=== PATIENT | male | born 1985 | race Caucasian/White ===

== ENCOUNTER → 2020-12-17 18:55 | Outpatient (BNVA) | payer BC, SELFPAY | PROVIDERS: Visit Provider Nurse Practitioner Family | DX: Z20.828 Contact with and (suspected) exposure to other viral communicable diseases (principal) | CPT/HCPCS: 87635 ==

== ENCOUNTER 2021-07-20 19:10 | Emergency (ER) | payer BC, SELFPAY ==
[2021-07-20 19:38] VITALS: BP 138/84; PULSE 93; RESP 20; TEMP 37.7; O2SAT 95; BMI 42.8
--- NOTE | 2021-07-20 20:12 | W.ED.BACK ---
HPI - Back Pain/Injury General: Chief Complaint: Back Pain/Injury Stated Complaint: mid r back pain Time Seen by Provider: 07/20/21 20:11 History of Present Illness: HPI Narrative: 35-year-old male patient comes in today with some right lateral rib pain for the last 3 days. Patient was seen at urgent care office early this morning and was diagnosed with bronchitis. Patient came in this evening due to coughing and feeling shifting of his ribs and was concerned for fracture or injury. Patient denies falls. Patient appears well. Patient appears in mild pain worse with movement or cough. Review of Systems General: Reports: 10 or more systems reviewed and unremarkable except in HPI and below Musc: Reports: other (Right rib pain) [facility] ED PFSH: Social History (Updated 12/17/20 @ 18:28 by Monika Hooker LPN) Smoking and tobacco status: never smoked Physical Exam Const: COMMON NORMALS: no acute distress and patient oriented x3 GENERAL APPEARANCE: cooperative HENMT: COMMON NORMALS: normocephalic and Normal external nose present HEAD & SCALP: normal to inspection and normocephalic NOSE: Normal external nose present MOUTH: Normal oral and palatal mucosa present Eye: GENERAL EYE: appearance normal, both eyes and all related structures Neck/C-Spine: COMMON NORMALS: full ROM Chest: COMMONS NORMALS: normal inspection of the chest Resp: COMMON NORMALS: normal respiratory effort EFFORT & INSPECTION: Yes able to speak in complete sentences AUSCULTATION: diminished lung sounds Cardio: COMMON NORMALS: regular rate and regular rhythm RATE: regular rate RHYTHM: regular rhythm GI: COMMON NORMALS: non-tender : COMMON NORMALS: Yes no CVA tenderness BLADDER/KIDNEY EXAM: Yes no CVA tenderness Back/Pelvis: COMMON NORMALS: no CVA tenderness and thoracic and lumbar spine normal to inspection Extremity: COMMON NORMALS: normal to inspection Neuro: COMMON NORMALS: patient oriented x3 and moves all extremities Psych: COMMON NORMALS: mental status grossly normal and cooperative Skin: COMMON NORMALS: no rashes or lesions noted GENERAL SKIN EXAM: no rashes or lesions noted Course Vital Signs: Vital signs: Vital Signs Temperature 99.8 F H 07/20/21 20:14 Pulse Rate 97 07/20/21 20:14 Respiratory Rate 20 H 07/20/21 19:38 Blood Pressure 136/90 07/20/21 20:14 Pulse Oximetry 95 07/20/21 20:14 MDM - Back Pain/Injury MDM Narrative: Medical decision making narrative: 35-year-old male patient comes in with some right lateral rib pain. Patient reports pain for about 2 to 3 days. Patient was seen today at urgent care clinic and started on medications for bronchitis. On exam patient has some decreased breath sounds and tenderness in the right lateral rib area. Vital signs were normal. Differential diagnosis includes but not limited to pleurisy, pneumonia, rib fracture, costochondritis. X-rays noted no obvious rib fractures. No signs of significant pneumonia either was noted. Reviewed exam with patient with recommendations for treatment for costochondritis. Patient reported understanding and agreed to plan. Patient looked well and in no distress. Discharge Plan Discharge Patient Disposition: Home Clinical Impression: Rib pain on right side, Costochondral pain Condition: Stable Prescriptions: New ibuprofen 800 mg tablet 800 mg PO TID PRN (Reason: pain) Qty: 20 RF: 0 No Action albuterol sulfate 90 mcg/actuation HFA aerosol inhaler 2 puff inhalation Q6H PRN (Reason: shortness of breath or wheezing) Qty: 8.5 RF: 0 uembzhgyqtobrak-pfyuuxcia-GZ [Bromfed DM] 2-30-10 mg/5 mL syrup 7.5 ml PO Q6H PRN (Reason: cold symptoms) Qty: 160 RF: 0 doxycycline hyclate 100 mg tablet 100 mg PO BID 10 Days Qty: 20 RF: 0 simvastatin 20 mg tablet 20 mg PO DAILY RF: 0 Discharge Orders: Discharge ED (Routine); Ordered 07/20/21 Ordered By: Nathanael Miranda Discharge Diet: Usual diet Discharge Activity: Increase activity as tolerated Patient Instructions: Costochondritis (ED), Opioid Safety Activity Restrictions/Additional Instructions: Use acetaminophen and ibuprofen as needed for pain. Follow instructions on the bottle and do not take more than prescribed or recommended. Drink plenty of water with medications. Follow-up with primary care as needed. Return to the ER for worsening symptoms or new concerns. Coding Level of Care Code ED Wearing Apparel Shaker for Venkat Winslow Exam Comprehensive
[2021-07-20 20:14] VITALS: BP 136/90; PULSE 97; TEMP 37.7; O2SAT 95
--- NOTE | 2021-07-20 20:17 | XRR_ITS ---
PROCEDURE INFORMATION: Exam: XR Right Ribs with PA Chest Exam date and time: 07/20/2021 8:17 PM Age: 35 years old Clinical indication: Other: Right sided chest pain; Additional info: Right rib pain with cough TECHNIQUE: Imaging protocol: XR Right ribs with PA chest. Views: 3 views COMPARISON: No relevant prior studies available. FINDINGS: Lungs: Unremarkable. No consolidation. Pleural spaces: No pleural effusion. No pneumothorax. Heart/Mediastinum: Unremarkable. No cardiomegaly. Bones/joints: No fracture or other acute osseous abnormality. Soft tissues: The soft tissues appear unremarkable. XR/XR ribs RT mn 3V w [id number] IMPRESSION: 1. No acute right rib fracture demonstrated. 2. No acute cardiopulmonary disease demonstrated.
[2021-07-20] MEDS: ketorolac 30 mg/mL INJ IM (20:23)
[2021-07-20] MEDS: dexamethasone 4 mg Tablet 12 MG PO (21:18)
== END 2021-07-20 21:35 | disposition home or self-care (01) ==
PROVIDERS: Emergency Provider Nurse Practitioner Family
DX: R07.81 Pleurodynia (principal); M94.0 Chondrocostal junction syndrome [Tietze]
CPT/HCPCS: 71101; 96372; 99283; J1885; J8540

== ENCOUNTER 2021-10-12 00:50 | Emergency (ER) | payer BC, SELFPAY ==
[2021-10-12 00:59] VITALS: BP 121/68; PULSE 92; RESP 18; TEMP 36.2; O2SAT 96; BMI 42.8
--- NOTE | 2021-10-12 01:07 | W.ED.ALLEREA ---
HPI - Allergic Reaction General: Chief complaint: Allergic Reaction Stated complaint: Allergic Reaction Time Seen by Provider: 10/12/21 01:06 History of Present Illness: HPI narrative: 35-year-old male patient comes in today with itchy spots over his torso and extremities. Patient was concerned he might be having a allergic reaction to some medication he was recently started on. Patient appears well. Patient appears no acute distress. Patient does report staying at a hotel over the holiday. Review of Systems General: Reports: 10 or more systems reviewed and unremarkable except in HPI and below Skin/Breast: Reports: new lesions PFSH ED PFSH: Social History (Updated 12/17/20 @ 18:28 by Monika Hooker LPN) Smoking and tobacco status: never smoked Physical Exam Const: COMMON NORMALS: no acute distress and patient oriented x3 GENERAL APPEARANCE: cooperative HENMT: COMMON NORMALS: normocephalic, TM's normal bilaterally and Normal external nose present HEAD & SCALP: normal to inspection and normocephalic NOSE: Normal external nose present TYMPANIC MEMBRANE: TM's normal bilaterally MOUTH: Normal oral and palatal mucosa present THROAT: posterior oropharynx normal Eye: GENERAL EYE: appearance normal, both eyes and all related structures Neck/C-Spine: COMMON NORMALS: full ROM Lymph: LYMPHATIC: no lymphadenopathy noted Chest: COMMONS NORMALS: normal inspection of the chest Resp: COMMON NORMALS: normal respiratory effort EFFORT & INSPECTION: Yes able to speak in complete sentences Cardio: COMMON NORMALS: regular rate and regular rhythm RATE: regular rate RHYTHM: regular rhythm GI: COMMON NORMALS: non-tender Back/Pelvis: COMMON NORMALS: thoracic and lumbar spine normal to inspection Extremity: COMMON NORMALS: normal to inspection Neuro: COMMON NORMALS: patient oriented x3 and moves all extremities Psych: COMMON NORMALS: mental status grossly normal and cooperative Skin: NARRATIVE SKIN EXAM: Multiple insect bites some in clusters across the torso and extremities. Course Vital Signs: Vital signs: Vital Signs Temperature 97.1 F L 10/12/21 00:59 Pulse Rate 92 10/12/21 00:59 Respiratory Rate 18 10/12/21 00:59 Blood Pressure 121/68 10/12/21 00:59 Pulse Oximetry 96 10/12/21 00:59 MDM - Allergic Reaction MDM Narrative: Medical decision making narrative: 35-year-old male patient comes in today with multiple red lesions. Patient appears well. Patient has maculopapular lesions with clusters of lesions across the torso and extremities. Differential diagnosis includes contact dermatitis, fleabites versus bedbug bites, allergic reaction. Due to the appearance of clustering of the lesions I believe the patient probably has been assaulted by bedbugs. Reviewed this with patient and family member with recommendations for treatment and investigation. They reported understanding and agreed to plan. Discharge Plan Discharge Patient Disposition: Home Clinical Impression: Bedbug bite Qualifiers: Encounter type: initial encounter Qualified Code(s): W57.XXXA - Bitten or stung by nonvenomous insect and other nonvenomous arthropods, initial encounter Condition: Stable Prescriptions: New triamcinolone acetonide 0.1 % cream 1 applic topical BID Qty: 80 RF: 0 No Action iudnksezbhzdodq-bymxixxjb-NA [Bromfed DM] 2-30-10 mg/5 mL syrup 7.5 ml PO Q6H PRN (Reason: cold symptoms) Qty: 160 RF: 0 doxycycline hyclate 100 mg tablet 100 mg PO BID 10 Days Qty: 20 RF: 0 simvastatin 20 mg tablet 20 mg PO DAILY RF: 0 albuterol sulfate 90 mcg/actuation HFA aerosol inhaler See Rx Instructions .ROUTE .COMPLEX Qty: 9 RF: 0 ibuprofen 800 mg tablet 800 mg PO TID PRN (Reason: pain) Qty: 20 RF: 0 Discharge Orders: Discharge ED (Routine); Ordered 10/12/21 Ordered By: Nathanael Miranda Discharge Diet: Usual diet Discharge Activity: Increase activity as tolerated Patient Instructions: Bed Bugs (ED), Opioid Safety Activity Restrictions/Additional Instructions: Home and rest. Use Benadryl to help with itching. Use triamcinolone cream to the wounds to help with redness and itching. Drink plenty of water with Benadryl. If Benadryl makes you too sleepy you can take Claritin in the morning and Zyrtec at night that can help control the itching. Follow-up with primary care as needed. Talk with your local insect electrician telephone for assistance with control of the bedbugs. Coding Level of Care Code ED Cutting Table Operator First for Venkat Winslow
[2021-10-12 01:30] VITALS: BP 122/62; PULSE 72; RESP 18; O2SAT 96
== END 2021-10-12 01:31 | disposition home or self-care (01) ==
PROVIDERS: Emergency Provider Nurse Practitioner Family
DX: S30.861A Insect bite (nonvenomous) of abdominal wall, initial encounter (principal); S80.862A Insect bite (nonvenomous), left lower leg, initial encounter; S80.861A Insect bite (nonvenomous), right lower leg, initial encounter; S40.862A Insect bite (nonvenomous) of left upper arm, initial encounter; S40.861A Insect bite (nonvenomous) of right upper arm, initial encounter; W57.XXXA Bitten or stung by nonvenomous insect and other nonvenomous arthropods, initial encounter
CPT/HCPCS: 99282

== ENCOUNTER 2022-10-17 20:00 | Outpatient (CLI) | payer BC, SELFPAY | END 2022-10-17 20:01 | disposition home or self-care (01) | LOC: SLEEP 10-18 10:14 | PROVIDERS: Visit Provider Nurse Practitioner Family | DX: G47.31 Primary central sleep apnea (principal) | CPT/HCPCS: 95811 ==

== ENCOUNTER 2022-11-23 22:52 | Emergency (ER) | payer MEDICARE, SELFPAY ==
[2022-11-23 22:55] VITALS: BP 139/83; PULSE 94; RESP 20; TEMP 36.9; O2SAT 95; BMI 46.1
--- NOTE | 2022-11-23 23:39 | W.ED.ABDPA2 ---
HPI - Abdominal Pain General: Chief Complaint: Abdominal Pain Stated Complaint: painful swallowing; no intake since Sunday Time Seen by Provider: 11/23/22 23:38 History of Present Illness: 37-year-old male patient comes in today for complaints of epigastric discomfort. Patient reports episodes of nausea and vomiting starting Sunday. Today patient's had some diarrhea. Patient reports poor oral intake and discomfort. Patient does continue to have his gallbladder. Patient appears mildly unwell but not toxic. Patient does take famotidine routinely. And patient also has obstructive sleep apnea which he uses a CPAP for. Associated Symptoms: Reports diarrhea, fever(s) and nausea Review of Systems Const: Reports: fever(s) GI: Reports: abdominal pain (Epigastric), nausea and diarrhea PFSH ED PFSH: Social History Smoking and tobacco status: former smoker Physical Exam Const: COMMON NORMALS: alert HENMT: COMMON NORMALS: normocephalic HEAD & SCALP: normocephalic Resp: COMMON NORMALS: normal respiratory effort Cardio: COMMON NORMALS: regular rate and regular rhythm RATE: regular rate RHYTHM: regular rhythm GI: COMMON NORMALS: Soft to palpation PALPATION: Yes Soft to palpation and Yes Tenderness to palpation present (GI) (Midepigastric) Extremity: COMMON NORMALS: no pedal edema Neuro: SENSORIUM/ORIENTATION: Yes alert Skin: COMMON NORMALS: turgor normal GENERAL SKIN EXAM: turgor normal Course Vital Signs: Vital signs: Vital Signs Temperature 98.5 F 11/23/22 22:55 Pulse Rate 94 11/23/22 22:55 Respiratory Rate 20 H 11/23/22 22:55 Blood Pressure 139/83 11/23/22 22:55 Pulse Oximetry 95 11/23/22 22:55 Oxygen Delivery Me thod 11/23/22 22:55 MDM - Abdominal Pain Medical Decision Making 37-year-old male patient comes in tonight due to midepigastric pain and diarrhea. Patient reports since Sunday he has had episodes of nausea and vomiting followed by diarrhea today. Patient also reports that he has had a fever with the highest being 104. Respirations are even. Patient appears mildly unwell. Vital signs are normal. Differential diagnosis includes not limited to cholecystitis, influenza, gastritis, pancreatitis, dehydration. CBC was unremarkable. CMP noted some mild decrease in sodium at 134 and chloride at 97. Urinalysis showed some ketones but otherwise was no signs of infection. Patient was treated for dehydration with 1 L of IV fluid. Patient was given Zofran and Reglan for his complaints of nausea. Patient reported significant improvement of symptoms except for some diarrhea stools while in the ER. Patient was given 2 tablets of Lomotil for diarrhea. The patient probably has about a viral gastroenteritis. Recommend follow-up with primary care as needed, return to ER for worsening symptoms. Patient reported understanding. Lab Data 11/23/22 23:52 11/23/22 23:52 Labs/Radiology: Radiology Impressions Chest X-Ray 11/23/22 23:45 IMPRESSION: No acute disease. Laboratory Results WBC 9.9 10^3/uL (4.0-10.0) 11/23/22 23:52 RBC 5.44 10^6/uL (4.1-5.3) H 11/23/22 23:52 Hgb 16.2 g/dL (11.7-16.6) 11/23/22 23:52 Hct 47.9 % (42.0-52.0) 11/23/22 23:52 MCV 88.1 fl (80-94) 11/23/22 23:52 MCH 29.8 pg (28.0-34.0) 11/23/22 23:52 MCHC 33.8 g/dL (30.0-36.0) 11/23/22 23:52 RDW 14.4 % (12.1-15.1) 11/23/22 23:52 Plt Count 147 10^3/cmm (130-400) 11/23/22 23:52 MPV 10.7 fL (7.4-10.4) H 11/23/22 23:52 Neut % (Auto) 76.7 % 11/23/22 23:52 Lymph % (Auto) 11.9 % 11/23/22 23:52 Garrett % (Auto) 10.3 % 11/23/22 23:52 Eos % (Auto) 0.2 % 11/23/22 23:52 Baso % (Auto) 0.4 % 11/23/22 23:52 Neut # (Auto) 7.60 10^3/uL (1.8-7.7) 11/23/22 23:52 Lymph # (Auto) 1.2 10^3/uL (0.8-4.8) 11/23/22 23:52 Garrett # (Auto) 1.0 10^3/uL (0.2-0.9) H 11/23/22 23:52 Eos # (Auto) 0.0 10^3/uL (0.0-0.8) 11/23/22 23:52 Baso # (Auto) 0.0 10^3/uL (0.0-0.1) 11/23/22 23:52 Nucleated RBC % (auto) 0 % 11/23/22 23: Nucleated RBCs # 0.0 /100WBC 11/23/22 23:52 Sodium 134 mmol/L (136-145) L 11/23/22 23:52 Potassium 3.5 mmol/L (3.5-5.1) 11/23/22 23:52 Chloride 97 mmol/L (98-107) L 11/23/22 23:52 Carbon Dioxide 23 mmol/L (22-29) 11/23/22 23:52 Anion Gap 17.5 (5-19) 11/23/22 23:52 BUN 11 mg/dL (6-20) 11/23/22 23:52 Creatinine 0.9 mg/dL (0.7-1.2) 11/23/22 23:52 GFR Calculation 95.0 mL/min (90-130) 11/23/22 23:52 Glucose 93 mg/dL (65-115) 11/23/22 23:52 Calculated Osmolality 277 mOsm/kg (285-295) L 11/23/22 23:52 Calcium 8.8 mg/dL (8.5-10.5) 11/23/22 23:52 Total Bilirubin 0.6 mg/dL (0.15-1.2) 11/23/22 23:52 AST 32 U/L (0-40) 11/23/22 23:52 ALT 41 U/L (0-41) 11/23/22 23:52 Alkaline Phosphatase 77 U/L (40-130) 11/23/22 23:52 Total Protein 7.9 g/dL (6.6-8.7) 11/23/22 23:52 Albumin 4.1 g/dL (3.5-5.2) 11/23/22 23:52 Globulin 3.8 g/dL (1.3-4.6) 11/23/22 23:52 Lipase 18 U/L (13-60) 11/23/22 23:52 Urine Color Dark yellow (Yellow) 11/24/22 00:53 Urine Appearance Clear (CLEAR) 11/24/22 00:53 Urine pH 5 (5-7) 11/24/22 00:53 Ur Specific Watrous 1.025 (1.005-1.030) 11/24/22 00:53 Urine Protein 1+ (Negative) H 11/24/22 00:53 Urine Glucose (UA) Norm (Normal) 11/24/22 00:53 Urine Ketones 2+ (Negative) H 11/24/22 00:53 Urine Blood Neg (Negative) 11/24/22 00:53 Urine Nitrate Negative (Negative) 11/24/22 00:53 Urine Bilirubin Neg (Negative) 11/24/22 00:53 Urine Urobilinogen 4 mg/dL (Negative) H 11/24/22 00:53 Ur Leukocyte Esterase Negative (Negative) 11/24/22 00:53 Urine RBC None /hpf (0-2) 11/24/22 00:53 Urine WBC None /hpf (0-5) 11/24/22 00:53 Ur Squamous Epith Cells 0-4 /hpf (0-5) H 11/24/22 00:53 Amorphous Sediment 1+ /hpf 11/24/22 00:53 Urine Bacteria None /hpf (NONE) 11/24/22 00:53 Urine Mucus 2+ /hpf 11/24/22 00:53 Influenza Type A Ag negative (Negative) 11/24/22 00:05 Influenza Type B Ag negative (Negative) 11/24/22 00:05 SARS-CoV-2 Ag (Rapid) negative (Negative) 11/24/22 00:05 Discharge Plan Discharge Patient Disposition: Home Clinical Impression: Gastroenteritis, Dehydration Condition: Stable Prescriptions: New pantoprazole 40 mg tablet,delayed release (DR/EC) 40 mg PO BID 10 Days Qty: 20 0RF ondansetron HCl 4 mg tablet 4 mg PO Q8H PRN (Reason: nausea and vomiting) Qty: 7 0RF No Action simvastatin 20 mg tablet 20 mg PO DAILY omeprazole 40 mg capsule,delayed release(DR/EC) 40 mg PO DAILY ciprofloxacin-dexamethasone [Ciprodex] 0.3-0.1 % drops,suspension 4 drp otic (ear) BID 7 Days Qty: 7.5 0RF ibuprofen 800 mg tablet 800 mg PO TID PRN (Reason: pain) Qty: 20 0RF Discharge Orders: Discharge ED (Routine); Ordered 11/24/22 Ordered By: Nathanael Miranda Referrals: Leigh Velázquez FNP [Primary Care Provider] - Discharge Diet: Clear Liquid Discharge Activity: Increase activity as tolerated Patient Instructions: Gastroenteritis (ED) Activity Restrictions/Additional Instructions: Home and rest. Drink plenty of water and fluids. Stay on a clear liquid diet until your abdominal pain resolves. Increase diet then slowly to a bland diet. Follow-up with primary care in 3 days. Return to ER for worsening symptoms such as blood in vomit or stool, inability to hold fluids down, or new concerns. Coding Level of Care Code ED Veterinarian Laboratory Animal Care for Magnusg Fwd Exam Detailed
--- NOTE | 2022-11-23 23:45 | XRR_ITS ---
PROCEDURE INFORMATION: Exam: XR Chest Exam date and time: 11/23/2022 11:54 PM Age: 37 years old Clinical indication: Cough; Additional info: Cough, fever TECHNIQUE: Imaging protocol: Radiologic exam of the chest. Views: 1 view. COMPARISON: CR (CHEST, ) 07/20/2021 8:22 PM FINDINGS: Lungs: Unremarkable. No consolidation. Pleural spaces: Unremarkable. No pleural effusion. No pneumothorax. Heart/Mediastinum: Stable heart size. Bones/joints: Unremarkable. XR/XR chest 1V portable [id number] IMPRESSION: No acute disease.
[2022-11-23] MEDS: ondansetron 2 mg/ML SDV 2 mL 4 MG IVP (23:56)
[2022-11-23] MEDS: pantoprazole 40 mg SDV IVP (23:56)
[2022-11-23] MEDS: sodium chloride 0.9% 1,000 ML 999 ML IV (23:58)
[2022-11-24 00:03] VITALS: BP 138/87; O2SAT 90
[2022-11-24 00:09] LABS: Basophils % 0.4 %; Eosinophils % 0.2 %; Hematocrit 47.9 % (42.0-52.0); Hemoglobin 16.2 g/dL (11.7-16.6); Lymphocytes # 1.2 10^3/uL (0.8-4.8); Lymphocytes % 11.9 %; Mean Corpuscular HGB Conc 33.8 g/dL (30.0-36.0); Mean Corpuscular Hemoglobin 29.8 pg (28.0-34.0); Mean Corpuscular Volume 88.1 fl (80-94); Mean Platelet Volume 10.7 fL (7.4-10.4); Monocytes % 10.3 %; Neutrophils % 76.7 %; Nucleated Red Blood Cells % 0 %; Platelet Count 147 10^3/cmm (130-400); Red Blood Count 5.44 10^6/uL (4.1-5.3); Red Cell Distribution Width 14.4 % (12.1-15.1); White Blood Count 9.9 10^3/uL (4.0-10.0)
[2022-11-24 00:30] VITALS: BP 138/87; O2SAT 97
[2022-11-24 00:38] LABS: Alanine Aminotransferase 41 U/L (0-41); Albumin Level 4.1 g/dL (3.5-5.2); Alkaline Phosphatase 77 U/L (40-130); Anion Gap 17.5 (5-19); Aspartate Amino Transferase 32 U/L (0-40); Blood Urea Nitrogen 11 mg/dL (6-20); Calcium 8.8 mg/dL (8.5-10.5); Carbon Dioxide 23 mmol/L (22-29); Chloride 97 mmol/L (98-107); Globulin 3.8 g/dL (1.3-4.6); Glucose 93 mg/dL (65-115); Lipase 18 U/L (13-60); Osmolality Calculated 277 mOsm/kg (285-295); Potassium 3.5 mmol/L (3.5-5.1); Sodium 134 mmol/L (136-145); Total Bilirubin 0.6 mg/dL (0.15-1.2); Total Protein 7.9 g/dL (6.6-8.7)
[2022-11-24 00:40] LABS: Influenza A by IFA negative (Negative); Influenza B by IFA negative (Negative)
[2022-11-24 00:41] LABS: SARS Covid-2 Antigen negative (Negative)
[2022-11-24] MEDS: metoclopramide 5 mg/mL SDV 2 mL 10 MG IVP (00:54)
[2022-11-24 01:00] VITALS: BP 170/118; O2SAT 96
[2022-11-24] MEDS: lidocaine 2% viscous 15 ML, aluminum-mag hydrox-simethicon 30 ML, sucralfate oral liq 1 GM PO (01:10)
[2022-11-24 01:30] VITALS: BP 123/84; O2SAT 95
[2022-11-24 01:31] LABS: Blood Urine Neg (Negative); Glucose Urine UA Norm (Normal); Ketones Urine 2+ (Negative); Nitrate Urine Negative (Negative); Protein Urine 1+ (Negative); Specific Gravity, Urine 1.025 (1.005-1.030); Urine Appearance Clear (CLEAR); Urine Color Dark Yellow (Yellow); pH Urine 5 (5-7)
[2022-11-24 01:32] LABS: Add Urine Culture? No; Add Urine Microscopic? YES; Amorphous Sediment Urine 1+ /hpf; Bilirubin Urine Neg (Negative); Leukocyte Esterase Urine Negative (Negative); Mucus Urine 2+ /hpf; Squamous Epithelial Cell Urine 0-4 /hpf (0-5); Urobilinogen Urine 4 mg/dL (Negative)
[2022-11-24 02:02] VITALS: O2SAT 96
[2022-11-24] MEDS: diphenoxylate/atropine Tablet 2 TAB PO (02:04)
[2022-11-24 02:24] VITALS: BP 152/77; PULSE 92; RESP 20
== END 2022-11-24 02:26 | disposition home or self-care (01) ==
PROVIDERS: Emergency Provider Nurse Practitioner Family; PCP Nurse Practitioner Family
DX: K52.9 Noninfective gastroenteritis and colitis, unspecified (principal); E86.0 Dehydration; Z20.822 Contact with and (suspected) exposure to COVID-19; Z87.891 Personal history of nicotine dependence
CPT/HCPCS: 71045; 80053; 81001; 83690; 85025; 87426; 87804; 96361; 96374; 96375; 99284; C9113; J2405; J2765; J7030

== ENCOUNTER 2023-01-14 04:31 | Emergency (ER) | payer MEDICARE, SELFPAY ==
[2023-01-14 04:42] VITALS: BP 149/73; PULSE 72; RESP 18; TEMP 36.7; O2SAT 98; BMI 39.5
--- NOTE | 2023-01-14 05:04 | CTR_ITS ---
PROCEDURE INFORMATION: Exam: CT Head Without Contrast Exam date and time: 01/14/2023 5:10 AM Age: 37 years old Clinical indication: Stroke-like symptoms; Right upper extremity numbness/paresthesia; Additional info: Symptoms of acute stroke. Right arm and facial numbness/tingling. Lkw [id number] TECHNIQUE: Imaging protocol: Computed tomography of the head without contrast. Radiation optimization: All CT scans at this facility use at least one of these dose optimization techniques: automated exposure control; mA and/or kV adjustment per patient size (includes targeted exams where dose is matched to clinical indication); or iterative reconstruction. Other technique: STROKE PROTOCOL was implemented. REPORTING DATA: Count of CT and Cardiac NM exams in prior 12 months: This patient has received 0 known CTs and 0 known cardiac nuclear medicine studies in the 12 months prior to the current study. COMPARISON: No relevant prior studies available. 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 No evidence of intracranial hemorrhage, mass effect, midline shift or extra-axial fluid collections. Midline structures are normal. Christianson-white matter differentiation is normal. Cerebral ventricles: Slightly enlarged ventricular atria which may represent developing hydrocephalus. Paranasal sinuses: Visualized sinuses are unremarkable. No fluid levels. Mastoid air cells: Visualized mastoid air cells are well aerated. Bones/joints: Unremarkable. No acute fracture. Soft tissues: Unremarkable. CT/CT head thrombolytic [id number] IMPRESSION: Possible developing hydrocephalus. No other acute intracranial abnormalities. ASSESSMENT: ASPECTS ([facility] Stroke Program Early CT Score) is 10.
--- NOTE | 2023-01-14 05:23 | W.ED.NEUROSD ---
HPI - Neuro Symptoms/Deficit General: Chief Complaint: Neuro Symptoms/Deficit Stated Complaint: numbness and tingling to the Right side Time Seen by Provider: 01/14/23 04:48 Source: patient and family History of Present Illness: 37-year-old male he says he went to bed around 2 AM. He awoke at 4:00 in the morning with numbness and tingling to my right side . He notes that it spares the forehead, but involves his face and his right upper extremity. Not necessarily his lower extremity. There are no speech, language, vision, or weakness problems. He ambulates without any difficulty. There is no dizziness. He does not have a headache. He has not had the symptoms before. They are somewhat improved since onset Onset (ago): hour(s) Last Observed Normal: 02:00 Timing confirmed by: family member Location: right face, right arm and right leg History of same: No Severity: mild Quality: numb and tingling Relieving factors: none Exacerbating factors: none Context: sudden onset Associated symptoms: Deny chest pain, cough, diaphoresis, fevers/chills, headache(s), nausea, seizures, short of breath, syncope, vertigo, vomiting or weakness Review of Systems Const: Denies: fever(s) or diaphoresis Eyes: Denies: change in vision ENMT: Denies: throat pain Card: Denies: chest pain or syncope Resp: Denies: dyspnea, productive cough or non-productive cough GI: Denies: nausea or vomiting Neuro: Denies: headache(s) or vertigo PFS ED PFSH: Social History Smoking and tobacco status: former smoker NIH stroke score NIHSS: Level Of Consciousness - 1a: 0 Level Of Consciousness Questions - 1b: Both Correct Level Of Consciousness Commands - 1c: Both Correct Best Gaze - 2: Normal Visual Donaldson - 3: No Visual Loss Facial Palsy - 4: Normal Motor Arm Right - 5: No Drift Motor Arm Left - 5: No Drift Motor Leg Right - 6: No Drift Motor Leg Left - 6: No Drift Limb Ataxia - 7: Absent Sensory - 8: Mild To Moderate Loss Best Language - 9: No Aphasia Dysarthia - 10: Normal Extinction And Inattention - 11: 0 Score: Total Score: 1 Physical Exam Const: COMMON NORMALS: no acute distress GENERAL APPEARANCE: cooperative; not ill appearing and not frail appearing HENMT: COMMON NORMALS: normocephalic, atraumatic and Normal external nose present HEAD & SCALP: normocephalic and atraumatic FACE & SINUS: normal facial exam and face symmetric NOSE: Normal external nose present Eye: COMMON NORMALS: Equal, round and reactive pupils present and EOMs intact bilaterally PUPIL: Yes Equal, round and reactive pupils present Neck/C-Spine: GENERAL: Yes trachea midline Chest: CHEST: Yes Symmetrical chest wall rise Resp: COMMON NORMALS: normal respiratory effort, No retractions, No use of accessory muscles and clear to auscultation bilaterally AUSCULTATION: clear to auscultation bilaterally Cardio: COMMON NORMALS: regular rate and regular rhythm RATE: regular rate RHYTHM: regular rhythm GI: COMMON NORMALS: Normal to inspection, nondistended, normoactive bowel sounds present Neuro: YARITZA COMA SCALE: document GCS findings [place] coma scale eye opening: Spontaneous Yaritza coma scale verbal response: Orientated [place] coma scale motor response: Obey commands Yaritza coma scale total score: 15 SENSORY EXAM: Yes extremities (intact) Psych: COMMON NORMALS: speech normal SPEECH: Yes normal speech Skin: COMMON NORMALS: no rashes or lesions noted GENERAL SKIN EXAM: no rashes or lesions noted Course Vital Signs: Vital signs: Vital Signs Temperature 98.1 F 01/14/23 04:42 Pulse Rate 69 01/14/23 06:03 Respiratory Rate 22 H 01/14/23 06:03 Blood Pressure 130/75 01/14/23 06:03 Pulse Oximetry 95 01/14/23 06:03 Oxygen Delivery Me thod 01/14/23 06:03 MDM - Neuro Symptoms/Deficit Medical Decision Making Mild neurological symptoms, improving on their own at this point, presenting within the treatment window but without the severity to be a candidate for tPA. Head CT and labs are pending. Head CT shows possible enlargement of hisVentricles. No evidence of stroke. Paresthesias are resolved except for the right thumb. Laboratory is not remarkable. With improvement in his symptoms, he will be allowed home with strict return precautions. Lab Data 01/14/23 05:55 01/14/23 05:[address] 01/14/23 05:04 IMPRESSION: Possible developing hydrocephalus. No other acute intracranial abnormalities. ASSESSMENT: ASPECTS ([place] Stroke Program Early CT Score) is 10. Laboratory Results WBC 9.4 10^3/uL (4.0-10.0) 01/14/23 05:55 RBC 5.02 10^6/uL (4.1-5.3) 01/14/23 05:55 Hgb 14.9 g/dL (11.7-16.6) 01/14/23 05:55 Hct 45.3 % (42.0-52.0) 01/14/23 05:55 MCV 90.2 fl (80-94) 01/14/23 05:55 MCH 29.7 pg (28.0-34.0) 01/14/23 05:55 MCHC 32.9 g/dL (30.0-36.0) 01/14/23 05:55 RDW 14.0 % (12.1-15.1) 01/14/23 05:55 Plt Count 212 10^3/cmm (130-400) 01/14/23 05:55 MPV 10.4 fL (7.4-10.4) 01/14/23 05:55 Neut % (Auto) 54.3 % 01/14/23 05:55 Lymph % (Auto) 30.4 % 01/14/23 05:55 Williamson % (Auto) 6.1 % 01/14/23 05:55 Eos % (Auto) 7.4 % 01/14/23 05:55 Baso % (Auto) 1.3 % 01/14/23 05:55 Neut # (Auto) 5.11 10^3/uL (1.8-7.7) 01/14/23 05:55 Lymph # (Auto) 2.9 10^3/uL (0.8-4.8) 01/14/23 05:55 Williamson # (Auto) 0.6 10^3/uL (0.2-0.9) 01/14/23 05:55 Eos # (Auto) 0.7 10^3/uL (0.0-0.8) 01/14/23 05:55 Baso # (Auto) 0.1 10^3/uL (0.0-0.1) 01/14/23 05:55 Nucleated RBC % (auto) 0 % 01/14/23 05:55 Nucleated RBCs # 0.0 /100WBC 01/14/23 05:55 Sodium 137 mmol/L (136-145) 01/14/23 05:55 Potassium 3.9 mmol/L (3.5-5.1) 01/14/23 05:55 Chloride 102 mmol/L (98-107) 01/14/23 05:55 Anion Gap 17.9 (5-19) 01/14/23 05:55 BUN 9 mg/dL (6-20) 01/14/23 05:55 Creatinine 0.8 mg/dL (0.7-1.2) 01/14/23 05:55 GFR Calculation 108.8 mL/min (90-130) 01/14/23 05:55 Glucose 106 mg/dL (65-115) 01/14/23 05:55 Calcium 9.0 mg/dL (8.5-10.5) 01/14/23 05:55 Total Bilirubin 0.5 mg/dL (0.15-1.2) 01/14/23 05:55 AST 29 U/L (0-40) 01/14/23 05:55 Alkaline Phosphatase 74 U/L (40-130) 01/14/23 05:55 Total Protein 6.9 g/dL (6.6-8.7) 01/14/23 05:55 Albumin 3.7 g/dL (3.5-5.2) 01/14/23 05:55 Globulin 3.2 g/dL (1.3-4.6) 01/14/23 05:55 Discharge Plan Discharge Patient Disposition: Home Clinical Impression: Paresthesia Condition: Stable Prescriptions: No Action simvastatin 20 mg tablet 20 mg PO DAILY omeprazole 40 mg capsule,delayed release(DR/EC) 40 mg PO DAILY ciprofloxacin-dexamethasone [Ciprodex] 0.3-0.1 % drops,suspension 4 drp otic (ear) BID 7 Days Qty: 7.5 0RF ibuprofen 800 mg tablet 800 mg PO TID PRN (Reason: pain) Qty: 20 0RF ondansetron HCl 4 mg tablet 4 mg PO Q8H PRN (Reason: nausea and vomiting) Qty: 7 0RF Discharge Orders: Discharge ED (Routine); Ordered 01/14/23 Ordered By: Donald Pascual Referrals: Melania,Leigh, PUTTYING AND [employer]KING SUPERVISOR [Primary Care Provider] - Patient Instructions: Paresthesia (ED) Activity Restrictions/Additional Instructions: Return for return of paresthesias, weakness, trouble with language or vision, any other concerning symptoms. Return also for increasing headache or fever. Close outpatient follow-up with your doctor. Coding Level of Care Code ED Physician Specialist for Venkat Winslow
[2023-01-14 06:01] LABS: Basophils # 0.1 10^3/uL (0.0-0.1); Basophils % 1.3 %; Eosinophils # 0.7 10^3/uL (0.0-0.8); Eosinophils % 7.4 %; Hematocrit 45.3 % (42.0-52.0); Hemoglobin 14.9 g/dL (11.7-16.6); Lymphocytes # 2.9 10^3/uL (0.8-4.8); Lymphocytes % 30.4 %; Mean Corpuscular HGB Conc 32.9 g/dL (30.0-36.0); Mean Corpuscular Hemoglobin 29.7 pg (28.0-34.0); Mean Corpuscular Volume 90.2 fl (80-94); Mean Platelet Volume 10.4 fL (7.4-10.4); Monocytes # 0.6 10^3/uL (0.2-0.9); Monocytes % 6.1 %; Neutrophils # 5.11 10^3/uL (1.8-7.7); Neutrophils % 54.3 %; Nucleated Red Blood Cells % 0 %; Platelet Count 212 10^3/cmm (130-400); Red Blood Count 5.02 10^6/uL (4.1-5.3); White Blood Count 9.4 10^3/uL (4.0-10.0)
[2023-01-14 06:03] VITALS: BP 130/75; PULSE 69; RESP 22; O2SAT 95
[2023-01-14] MEDS: sodium chloride 0.9% 500 ML 999 ML IV (06:06)
[2023-01-14 06:21] LABS: Alanine Aminotransferase 46 U/L (0-41); Albumin Level 3.7 g/dL (3.5-5.2); Alkaline Phosphatase 74 U/L (40-130); Anion Gap 17.9 (5-19); Aspartate Amino Transferase 29 U/L (0-40); Blood Urea Nitrogen 9 mg/dL (6-20); Carbon Dioxide 21 mmol/L (22-29); Chloride 102 mmol/L (98-107); Globulin 3.2 g/dL (1.3-4.6); Glomerular Filtration Rate 108.8 mL/min (90-130); Glucose 106 mg/dL (65-115); Osmolality Calculated 283 mOsm/kg (285-295); Potassium 3.9 mmol/L (3.5-5.1); Sodium 137 mmol/L (136-145); Total Bilirubin 0.5 mg/dL (0.15-1.2); Total Protein 6.9 g/dL (6.6-8.7)
--- NOTE | 2023-01-14 06:41 | PC.NURSE ---
Patient component inspector light due to pain with IV site. Upon inspection IV had infiltrated, IV was removed and fluids DC.
[2023-01-14 06:50] VITALS: BP 123/79; PULSE 69; RESP 25; O2SAT 97
[2023-01-14 07:16] LABS: Alcohol Level < 10 mg/dL (0-10)
[2023-01-14 07:30] LABS: INR 0.95 (0.8-1.2); Partial Thromboplastin Time 30.8 SECONDS (23.9-36.7)
== END 2023-01-14 06:51 | disposition home or self-care (01) ==
PROVIDERS: Emergency Provider Emergency Medicine; PCP Nurse Practitioner Family
DX: R20.2 Paresthesia of skin (principal); Z87.891 Personal history of nicotine dependence
CPT/HCPCS: 70450; 80053; 80307; 85025; 85610; 85730; 99284; J7040

== ENCOUNTER 2023-03-10 19:10 | Emergency (ER) | payer MEDICARE, MEDICAID, SELFPAY ==
[2023-03-10 19:21] VITALS: BP 143/68; RESP 18; TEMP 37.1; O2SAT 98
--- NOTE | 2023-03-10 20:02 | USR_ITS ---
PROCEDURE INFORMATION: Exam: US Scrotum Exam date and time: 03/10/2023 8:18 PM Age: 37 years old Clinical indication: Scrotum pain; Additional info: Concern for abscess TECHNIQUE: Imaging protocol: Real-time ultrasound of the scrotum and contents with color Doppler and image documentation. COMPARISON: No relevant prior studies available. FINDINGS: Right testicle: Normal. No mass. No torsion. Normal vascular flow. Left testicle: Normal. No mass. No torsion. Normal vascular flow. Epididymides: Normal. Scrotum/soft tissues: Small left hydrocele and minimal right hydrocele. There is thickening and hyperemia of scrotum suspicious for cellulitis. No discrete fluid collection to suggest abscess. Other findings: Asymmetry of right inguinal canal contents is suggestive of fatty hernia. US/US scrotum [id number] IMPRESSION: Scrotal abnormalities suspicious for cellulitis. No evident abscess.
--- NOTE | 2023-03-10 20:03 | W.ED.SKABFB ---
HPI - Skin/Abscess/Foreign Bdy General: Chief complaint: Skin/Abscess/Foreign Body Stated complaint: insect bite Time Seen by Provider: 03/10/23 19:46 History of Present Illness: Patient comes in with redness, swelling, and pain on the right side of his scrotum. States he has had it for the past couple of days. Denies any fever, cough, congestion, vomiting, diarrhea. Denies dysuria. Associated symptoms: Deny fever(s), nausea or vomiting Review of Systems Const: Denies: fever(s) or body aches Eyes: Denies: change in vision ENMT: Denies: odynophagia Card: Denies: chest pain Resp: Denies: dyspnea or productive cough GI: Denies: abdominal pain, nausea or vomiting : Reports: other (Swelling, tenderness to the right side of scrotum); Denies: flank pain or dysuria PFSH ED PFSH: Social History Smoking and tobacco status: former smoker Physical Exam Const: COMMON NORMALS: no acute distress, patient oriented x3, healthy appearing and alert HENMT: COMMON NORMALS: normocephalic and atraumatic HEAD & SCALP: normocephalic and atraumatic Eye: COMMON NORMALS: Equal, round and reactive pupils present and EOMs intact bilaterally PUPIL: Yes Equal, round and reactive pupils present Neck/C-Spine: COMMON NORMALS: full ROM and supple Resp: COMMON NORMALS: normal respiratory effort, No retractions and No use of accessory muscles Cardio: COMMON NORMALS: regular rate and regular rhythm RATE: regular rate RHYTHM: regular rhythm GI: COMMON NORMALS: Normal to inspection, nondistended, normoactive bowel sounds present, Soft to palpation and non-tender PALPATION: Yes Soft to palpation : OTHER: 4 x 5 cm indurated region on the right side of his scrotum with no central fluctuance. The area is erythematous and tender and warm to palpation. Does not extend onto the perineum Extremity: COMMON NORMALS: normal to inspection and full ROM Neuro: COMMON NORMALS: patient oriented x3 SENSORIUM/ORIENTATION: Yes alert Psych: COMMON NORMALS: mental status grossly normal and cooperative Course Vital Signs: Vital signs: Vital Signs Temperature 98.8 F 03/10/23 19:21 Respiratory Rate 17 03/10/23 20:46 Blood Pressure 143/68 03/10/23 19:21 Pulse Oximetry 98 03/10/23 19:21 Oxygen Delivery Me thod Room Air 03/10/23 19:21 MDM - Skin/Abscess/Foreign Bdy Medicial Decision Making Patient comes in with redness, swelling, and pain on the right side of his scrotum. States he has had it for the past couple of days. Denies any fever, cough, congestion, vomiting, diarrhea. Denies dysuria. On physical exam he has a 4 x 5 cm indurated region on the right side of his scrotum with no central fluctuance. The area is erythematous and tender and warm to palpation. Will check ultrasound, and reassess. On reassessment I talked to the patient about the ultrasound. His ultrasound shows no signs of scrotal abscess. He does have a right inguinal fat-containing hernia. We will start him on antibiotics for the cellulitis, and refer him to surgery for the inguinal hernia. Plan to discharge with precautions to return for worsening or changing symptoms. Lab Data Radiology Impressions Scrotum Ultrasound 03/10/23 20:02 IMPRESSION: Scrotal abnormalities suspicious for cellulitis. No evident abscess. Discharge Plan Discharge Patient Disposition: Home Clinical Impression: Cellulitis of scrotum, Inguinal hernia Condition: Stable Prescriptions: New Bactrim DS 800-160 mg tablet 1 tab PO BID 7 Days Qty: 14 0RF cephalexin 500 mg capsule 500 mg PO Q6H 7 Days Qty: 28 0RF No Action simvastatin 20 mg tablet 20 mg PO DAILY omeprazole 40 mg capsule,delayed release(DR/EC) 40 mg PO DAILY ciprofloxacin-dexamethasone [Ciprodex] 0.3-0.1 % drops,suspension 4 drp otic (ear) BID 7 Days Qty: 7.5 0RF ibuprofen 800 mg tablet 800 mg PO TID PRN (Reason: pain) Qty: 20 0RF ondansetron HCl 4 mg tablet 4 mg PO Q8H PRN (Reason: nausea and vomiting) Qty: 7 0RF Discharge Orders: Discharge ED (Routine); Ordered 03/10/23 Ordered By: Adelso Melendrez Referrals: Leigh Velázquez FNP [Primary Care Provider] - Patient Instructions: Cellulitis Coding Level of Care Code ED Stripper Soft Plastic for Chg Goldy
[2023-03-10] MEDS: sulfamethoxazole-trimeth DS 160-800 mg Tablet 1 TAB PO (20:45)
[2023-03-10] MEDS: cephALEXin 500 mg Capsule PO (20:45)
[2023-03-10 20:46] VITALS: RESP 17
--- NOTE | 2023-03-12 08:47 | DCPLANNER ---
Addendum entered by La Good 04/11/23 11:11: Patient had a follow up appointment scheduled with general surgery - patient did attend appointment Addendum entered by La Good 03/15/23 08:05: Patient has a follow up appointment scheduled for Monday, April 10, 2023 at 1:[address] Cook at general surgery. Original Note: grooming salon manager had message to schedule a follow up appointment for patient with general surgery. grooming salon manager sent patients information to the front office staff at general surgery. Patients information will be printed and reviewed. Clinic will call patient with appointment information.
== END 2023-03-10 20:53 | disposition home or self-care (01) ==
PROVIDERS: Emergency Provider Emergency Medicine; PCP Nurse Practitioner Family
DX: N49.2 Inflammatory disorders of scrotum (principal); K40.90 Unilateral inguinal hernia, without obstruction or gangrene, not specified as recurrent; Z87.891 Personal history of nicotine dependence
CPT/HCPCS: 76870; 99284

== ENCOUNTER → 2023-04-10 13:11 | Outpatient (BNVA) | payer MEDICARE, SELFPAY | PROVIDERS: PCP Nurse Practitioner Family; Visit Provider Surgery | DX: N49.2 Inflammatory disorders of scrotum (principal) | CPT/HCPCS: 99203 ==

== ENCOUNTER 2023-04-29 19:08 | Emergency (ER) | payer MEDICARE, SELFPAY ==
[2023-04-29 19:16] VITALS: BP 118/66; PULSE 73; RESP 18; TEMP 36.8; O2SAT 98; BMI 46.1
--- NOTE | 2023-04-29 19:45 | XRR_ITS ---
PROCEDURE INFORMATION: Exam: XR Lumbosacral Spine Exam date and time: 04/29/2023 7:58 PM Age: 37 years old Clinical indication: Low back pain TECHNIQUE: Imaging protocol: Radiologic exam of the lumbosacral spine. Views: 2 or 3 views. [facility] [id number] 03/10/2023 8:18 PM FINDINGS: Bones/joints: Normal. No acute fracture. Normal alignment. Soft tissues: Unremarkable. XR/XR lumbar spine 2-3V* [id number] IMPRESSION: No acute findings.
[2023-04-29 20:23] VITALS: RESP 16; O2SAT 98
[2023-04-29] MEDS: HYDROmorphone 1 mg/mL INJ 1 mL IM (20:23)
[2023-04-29] MEDS: ketorolac 60 mg/2 mL INJ IM (20:24)
[2023-04-29 20:27] VITALS: BP 137/82; PULSE 70; RESP 16; O2SAT 98
--- NOTE | 2023-04-29 21:19 | W.ED.BACK ---
HPI - Back Pain/Injury General: Chief Complaint: Back Pain/Injury Stated Complaint: back pain Time Seen by Provider: 04/29/23 19:22 Source: patient History of Present Illness: 37-year-old male who this afternoon hurt his back while getting out of a car after a ride of about 40 minutes. He complains of left-sided lumbosacral region pain, particularly when straightening up straight. As long as he leans to the side and bends over, he is in minimal pain. No radicular pain down the legs. No paresthesias. No weakness. No loss of bowel or bladder function. MD elicited complaint: back pain Pertinent past history: other Onset (ago): hour(s) Timing: constant Severity: moderate Similar Symptoms Previously: No Quality: stabbing Location: lumbar spine and sacrum Radiation: none Exacerbating factors: movement and sitting upright Relieving factors: immobilization Associated symptoms: Deny abdominal pain, arthralgias, chills, fecal incontinence, fever(s), nausea, numbness, tingling/numbness/burning, urinary frequency or vomiting Review of Systems Const: Denies: fever(s) or chills Card: Denies: chest pain Resp: Denies: dyspnea GI: Denies: abdominal pain, nausea, vomiting or fecal incontinence Musc: Reports: back pain Neuro: Denies: headache(s) PFSH ED PFSH: Medical History Chronic GERD High triglycerides Surgical History Hx of appendectomy Social History Smoking and tobacco status: former smoker Physical Exam Const: COMMON NORMALS: no acute distress GENERAL APPEARANCE: cooperative; not ill appearing and not frail appearing HENMT: COMMON NORMALS: normocephalic, atraumatic and Normal external nose present HEAD & SCALP: normocephalic and atraumatic FACE & SINUS: normal facial exam and face symmetric NOSE: Normal external nose present Eye: COMMON NORMALS: Equal, round and reactive pupils present and EOMs intact bilaterally PUPIL: Yes Equal, round and reactive pupils present Neck/C-Spine: GENERAL: Yes trachea midline Chest: CHEST: Yes Symmetrical chest wall rise Resp: COMMON NORMALS: normal respiratory effort, No retractions, No use of accessory muscles and clear to auscultation bilaterally AUSCULTATION: clear to auscultation bilaterally Cardio: COMMON NORMALS: regular rate and regular rhythm RATE: regular rate RHYTHM: regular rhythm GI: COMMON NORMALS: Normal to inspection, nondistended, normoactive bowel sounds present Back/Pelvis: OTHER: Minimal reproducible tenderness over the iliolumbar ligament on the left. Some sacroiliac joint tenderness. No midline tenderness. Negative straight leg raise testing bilaterally. No weakness on muscle testing. No sensory changes Extremity: COMMON NORMALS: no pedal edema Neuro: YARITZA COMA SCALE: document GCS findings [place] coma scale eye opening: Spontaneous [place] coma scale verbal response: Orientated Yaritza coma scale motor response: Obey commands [place] coma scale total score: 15 SENSORY EXAM: Yes extremities (intact) Psych: COMMON NORMALS: speech normal SPEECH: Yes normal speech Skin: COMMON NORMALS: no rashes or lesions noted GENERAL SKIN EXAM: no rashes or lesions noted Course Vital Signs: Vital signs: Vital Signs Temperature 98.2 F 04/29/23 19:16 Pulse Rate 70 04/29/23 20:27 Respiratory Rate 16 04/29/23 20:27 Blood Pressure 137/82 04/29/23 20:27 Pulse Oximetry 98 04/29/23 20:27 Oxygen Delivery Me thod Room Air 04/29/23 20:27 MDM - Back Pain/Injury Medical Decision Making X-rays show no fracture or significant disc base narrowing. On exam, consistent with a iliolumbar sprain. Pain control, relative rest no more than 48 hours, etc. Red flag signs given/explained for return. Discharge Plan Discharge Patient Disposition: Home Clinical Impression: Sprain of iliolumbar ligament Condition: Stable Prescriptions: New hydrocodone-acetaminophen 5-325 mg tablet 1 tab PO Q8H PRN (Reason: pain) Qty: 7 0RF Medrol (Jonel) 4 mg tablets,dose pack See Rx Instructions .ROUTE .COMPLEX Qty: 21 0RF Rx Instructions: orally per package directions No Action simvastatin 20 mg tablet 20 mg PO DAILY omeprazole 40 mg capsule,delayed release(DR/EC) 40 mg PO DAILY ciprofloxacin-dexamethasone [Ciprodex] 0.3-0.1 % drops,suspension 4 drp otic (ear) BID 7 Days Qty: 7.5 0RF ibuprofen 800 mg tablet 800 mg PO TID PRN (Reason: pain) Qty: 20 0RF ondansetron HCl 4 mg tablet 4 mg PO Q8H PRN (Reason: nausea and vomiting) Qty: 7 0RF Discharge Orders: Discharge ED (Routine); Ordered 04/29/23 Ordered By: Donald Pascual Referrals: Leigh Velázquez FNP [Primary Care Provider] - 1-3 days Patient Instructions: Lower Back Exercises (ED), Opioid Safety, Pain Management Activity Restrictions/Additional Instructions: Return for weakness to the lower extremities, numbness or tingling to the lower extremities, worsening pain despite treatment, etc. Relative rest for the next 48 hours, with gentle stretches to follow. Follow-up with your doctor this week. Coding Level of Care Code ED Weekend Anchor for Venkat Winslow
== END 2023-04-29 20:49 | disposition home or self-care (01) ==
PROVIDERS: Emergency Provider Emergency Medicine; PCP Nurse Practitioner Family
DX: S33.5XXA Sprain of ligaments of lumbar spine, initial encounter (principal); Z87.891 Personal history of nicotine dependence; X50.9XXA Other and unspecified overexertion or strenuous movements or postures, initial encounter
CPT/HCPCS: 72100; 96372; 99284; J1170; J1885

== ENCOUNTER 2023-05-17 13:43 | Outpatient (CLI) | payer MEDICARE, BC, SELFPAY ==
--- NOTE | 2023-05-17 14:30 | USCV_ITS ---
Gonzalo Sargent Age: 37 Gender: M : 1985 Exam Date: 05/17/2023 15:35 Ordering Phys: Ester Shepard Technologist: Nany Reid Exam Location: [facility] – [place], [place] Indication: SOB, BP: 136 / 84 HR: 56 Rhythm: Sinus Technical Quality: Technically difficult study MEASUREMENTS (Male / Female) Normal Values 2D ECHO LV Diastolic Diameter PLAX 3.4 cm 4.2 - 5.9 / 3.9 - 5.3 cm LV Systolic Diameter PLAX 2.9 cm IVS Diastolic Thickness 0.6 cm 0.6 - 1.0 / 0.6 - 0.9 cm IVS Systolic Thickness 1.6 cm LVPW Diastolic Thickness 3.2 cm 0.6 - 1.0 / 0.6 - 0.9 cm LVPW Systolic Thickness 1.6 cm LVOT Diameter 2.0 cm LV Ejection Fraction 2D Teich 65.6 % LV Ejection Fraction MOD 2C 77.6 % LV Ejection Fraction 2C AL 77.1 % LA Diameter 3.4 cm LA Width 3.2 cm LA Height 5.3 cm RA Width 4.0 cm RA Height 5.5 cm Aorta at Sinotubular Diameter 2.8 cm M-MODE Aortic Annulus Diameter 3.1 cm LA Ao Ratio MM 1.1 MV E Point Septal Separation 0.6 cm DOPPLER AV Peak Velocity 125.0 cm/s LVOT Peak Velocity 112.0 cm/s AV Area Cont Eq vti 3.1 cm squared AV Area Cont Eq pk 2.9 cm squared MV Peak Velocity 107.0 cm/s MV Area PHT 2.7 cm squared Mitral E to A Ratio 1.1 MV E' Velocity 48.5 cm/s Mitral E to MV E' Ratio 10.7 Mitral E to LV E' Lateral Ratio 8.5 Mitral E to LV E' Septal Ratio 14.6 TR Peak Velocity 159.8 cm/s TR Peak Gradient 10.2 mmHg Right Atrial Pressure 5.0 mmHg Pulmonary Artery Systolic Pressu 15.2 mmHg PV Peak Velocity 88.0 cm/s RV Acceleration Time 0.1 s RV Ejection Time 0.3 s RV AcT/ET 0.5 FINDINGS Left Ventricle Left ventricle is normal in size. LV systolic function is normal with EF of 60 to 65%. No regional wall motion abnormalities are seen. Right Ventricle Normal in size and function Right Atrium Normal in size Left Atrium Normal in size Mitral Valve Structurally normal mitral valve. Trace mitral regurgitation Aortic Valve Structurally normal aortic valve. No significant stenosis or regurgitation. Tricuspid Valve Mild tricuspid regurgitation. Pulmonary artery systolic pressure is normal. Pulmonic Valve Not well-visualized Pericardium Normal Aorta Normal in size IVC Appears to be normal CONCLUSIONS LV systolic function is normal with EF of 60 to 65%. Trace mitral regurgitation Mild tricuspid regurgitation No comparison studies are available. Ashwin Rome MD (Electronically Signed) Final Date: 19 May 2023 10:40 S
[2023-05-17] MEDS: perflutren protein-a microsphr 0.22 mg/mL SDV 3 mL IV (16:28)
== END 2023-05-17 13:44 | disposition home or self-care (01) ==
PROVIDERS: PCP Nurse Practitioner Family; Visit Provider Registered Nurse
DX: R09.89 Other specified symptoms and signs involving the circulatory and respiratory systems (principal); E78.2 Mixed hyperlipidemia; I07.1 Rheumatic tricuspid insufficiency
CPT/HCPCS: C8929; Q9956

== ENCOUNTER → 2025-08-17 10:21 | Outpatient (BNVA) | payer MEDICARE, SELFPAY | PROVIDERS: PCP Nurse Practitioner Family; Referring Provider Nurse Practitioner Family; Visit Provider Podiatrist Foot & Ankle Surgery | DX: L60.3 Nail dystrophy (principal) | CPT/HCPCS: 99203 ==

== ENCOUNTER 2025-10-01 16:56 | Emergency (ER) | payer MEDICARE, SELFPAY ==
[2025-10-01 17:07] VITALS: BP 139/81; PULSE 80; RESP 16; TEMP 36.7; O2SAT 98; BMI 46.1
--- NOTE | 2025-10-01 17:28 | CTR_ITS ---
PROCEDURE INFORMATION: Exam: CT Lumbar Spine Without Contrast Exam date and time: 10/01/2025 6:35 PM Age: 39 years old Clinical indication: Injury or trauma; Fall; Additional info: Fall, midline tenderness TECHNIQUE: Imaging protocol: Computed tomography of the lumbar spine without contrast. Radiation optimization: All CT scans at this facility use at least one of these dose optimization techniques: automated exposure control; mA and/or kV adjustment per patient size (includes targeted exams where dose is matched to clinical indication); or iterative reconstruction. COMPARISON: CR XR lumbar spine 2-3V* [id number] 04/29/2023 7:58 PM RADIATION DOSE METRICS: Total DLP (mGy-cm): 1403.81 FINDINGS: Bones/joints: No acute fracture. Normal alignment. Mild degenerative changes. L4-L5 and L5-S1 disc bulges. Superimposed small central disc herniation/protrusion is seen at L5-S1. Liver: Hepatic steatosis. Soft tissues: Unremarkable. CT/CT lumbar spine wo con* [id number] IMPRESSION: No acute lumbar spine fracture.
[2025-10-01] MEDS: orphenadrine 30 mg/mL Inj 2 mL 60 MG IM (17:41)
[2025-10-01 17:44] VITALS: BP 147/68; O2SAT 95
[2025-10-01 18:24] VITALS: BP 135/64; O2SAT 94
--- NOTE | 2025-10-01 18:24 | W.ED.FALL ---
HPI - Fall General: Chief Complaint: Fall Stated Complaint: fall Time Seen by Provider: 10/01/25 17:25 History of Present Illness: Patient is a 39-year-old gentleman, HLD, GERD, presents to the emergency room with a slip and fall. Patient was walking out to his shed, up a wooden ramp, however it was slightly slick from the recent rain, and he fell slipping forward and directly on his low back. He has difficulty with walking due to his low back pain. No saddle anesthesia, sensory changes, incontinence. This occurred at 1600 today. Associated symptoms-after fall: Denies abdominal pain or chest pain Related Data Home Medications ?Medication ?Instructions ?Recorded ?Confirmed simvastatin 20 mg tablet 20 mg PO DAILY 12/17/20 08/17/25 omeprazole 40 mg capsule,delayed 40 mg PO DAILY 01/24/22 08/17/25 release Previous Rx's ?Medication ?Instructions ?Recorded ibuprofen 800 mg tablet 800 mg PO TID PRN pain #20 tabs 07/20/21 ondansetron HCl 4 mg tablet 4 mg PO Q8H PRN nausea and 11/24/22 vomiting #7 tabs diclofenac sodium 75 mg 75 mg PO BID PRN pain #30 tabs 10/01/25 tablet,delayed release methocarbamol 750 mg tablet 750 mg PO Q8H PRN muscle spasm #30 10/01/25 tabs Allergies Allergy/AdvReac Type Severity Reaction Status Date / Time No Known Allergies Allergy Verified 08/17/25 10:23 Review of Systems General: Reports: 10 or more systems reviewed and unremarkable except in HPI and below Const: Denies: fever(s) or chills Eyes: Denies: change in vision or blurry vision ENMT: Denies: throat pain or dry mouth Card: Denies: chest pain or dyspnea on exertion Resp: Denies: dyspnea or productive cough GI: Denies: abdominal pain, nausea or vomiting Musc: Reports: back pain; Denies: extremity pain, extremity swelling or limited range of motion Skin/Breast: Denies: changes in skin color or dry skin Neuro: Denies: numbness in extremities, weakness in extremities or sensory changes Psych: Denies: anxiety Edmund/Lymph: Denies: easy bruising or easy bleeding [facility] ED PFSH: Medical History (Updated 10/01/25 @ 19:15 by LILLY Bergeron) High triglycerides Chronic GERD Surgical History Hx of appendectomy Social History Smoking and tobacco/nicotine status: unknown if used tobacco/nicotine Physical Exam Const: COMMON NORMALS: no acute distress, average body habitus, patient oriented x3, no limitations, healthy appearing, alert and well nourished HENMT: COMMON NORMALS: normocephalic, atraumatic and hearing grossly normal bilaterally HEAD & SCALP: normocephalic and atraumatic Neck/C-Spine: COMMON NORMALS: full ROM, no lymphadenopathy, supple, no meningeal signs and no JVD Resp: COMMON NORMALS: normal respiratory effort, No retractions and clear to auscultation bilaterally AUSCULTATION: clear to auscultation bilaterally Cardio: COMMON NORMALS: no JVD, regular rate, regular rhythm, S1 normal heart sound present, S2 normal heart sound present, No gallops present (Cardio), No clicks present (Cardio), No murmurs present (Cardio), No rub (Cardio) and Peripheral pulses 2+ throughout RATE: regular rate RHYTHM: regular rhythm HEART SOUNDS: S1 normal heart sound present and S2 normal heart sound present PERIPHERAL PULSES: Peripheral pulses 2+ throughout GI: COMMON NORMALS: Normal to inspection, nondistended, normoactive bowel sounds present, Soft to palpation and non-tender PALPATION: Yes Soft to palpation Back/Pelvis: THORACIC SPINE/UPPER BACK: Yes normal to inspection, Yes thoracic ROM normal, No pain with ROM and No thoracic spinal tenderness LUMBAR SPINE/LOWER BACK: Yes normal to inspection, Yes pain with ROM, Yes lumbar spinal tenderness (Midline tenderness) Lumbar spinal tenderness location: L3 and L4, No paraspinal muscle spasm and Yes straight leg raise negative bilaterally Neuro: COMMON NORMALS: patient oriented x3 SENSORIUM/ORIENTATION: Yes alert MENINGEAL SIGNS: Yes no meningeal signs Course Vital Signs: Vital signs: Vital Signs Temperature 98.1 F 10/01/25 17:07 Pulse Rate 68 10/01/25 19:38 Respiratory Rate 18 10/01/25 19:38 Blood Pressure 155/72 10/01/25 19:38 Pulse Oximetry 97 10/01/25 19:38 Oxygen Delivery Me thod Room Air 10/01/25 17:44 MDM - Fall Medical Decision Making Patient is 39-year-old male that presents to the emergency room with acute back pain after a slip and fall on the wet wooden ramp to his storage unit at home. He is improved after Toradol, Norflex, dexamethasone. CT of the lumbar spine was done due to body habitus, which did not show acute compression fracture or spondylolisthesis. Medical Records I reviewed the patient's medical records. Lab Data Radiology Impressions Lumbar Spine CT 10/01/25 17:28 IMPRESSION: No acute lumbar spine fracture. All radiology interpretation(s) finalized by discharge Discharge Plan Discharge Patient Disposition: Home Clinical Impression: Acute lumbar back pain Qualifiers: Back pain laterality: midline Sciatica presence: without sciatica Qualified Code(s): M54.50 - Low back pain, unspecified Condition: Stable Prescriptions: New methocarbamol 750 mg tablet 750 mg PO Q8H PRN (Reason: muscle spasm) Qty: 30 0RF diclofenac sodium 75 mg tablet,delayed release (DR/EC) 75 mg PO BID PRN (Reason: pain) Qty: 30 0RF No Action simvastatin 20 mg tablet 20 mg PO DAILY omeprazole 40 mg capsule,delayed release(DR/EC) 40 mg PO DAILY ibuprofen 800 mg tablet 800 mg PO TID PRN (Reason: pain) Qty: 20 0RF ondansetron HCl 4 mg tablet 4 mg PO Q8H PRN (Reason: nausea and vomiting) Qty: 7 0RF Discharge Orders: Discharge ED (Routine); Ordered 10/01/25 Ordered By: Juliana Milner Referrals: Leigh Velázquez FNP [Primary Care Provider, Unknown] Discharge Diet: Usual diet Discharge Activity: Resume usual activity Patient Instructions: Lower Back Exercises (ED), Patient Portal & [place] Instructions Activity Restrictions/Additional Instructions: - At the pharmacy: Diclofenac, anti-inflammatory and pain reliever. Avoid any additional [id number] anti-inflammatory/NSAIDs: Ibuprofen, naproxen, BC powder. Methocarbamol: A powerful muscle relaxer. You may break in half to avoid extra sedation side effects. Use as directed. - Return to ED if you have worsening pain, decrease in sensation, urinary incontinence, or 100.4 ?F - Follow-up with your primary care physician - Additional items that will help with your pain: Tylenol, ice, Lidoderm patches [id number] Thank you for choosing [facility] for your healthcare needs today. You have been screened and evaluated and felt safe for discharge. Health conditions do change or evolve sometimes and as such it is important that you follow up with your Primary Doctor to be re checked, 3-5 days is a general good time frame for follow up. You are always welcome to return to the ED for re assessment if your symptoms are worsening or you have new concerns Print Language: Upper Sorbian Coding Level of Care Code ED Well Head Pumper for Venkat Winslow
[2025-10-01 19:38] VITALS: BP 155/72; PULSE 68; RESP 18; O2SAT 97
== END 2025-10-01 19:39 | disposition home or self-care (01) ==
PROVIDERS: Emergency Provider Physician Assistant; PCP Nurse Practitioner Family
DX: M54.50 Low back pain, unspecified (principal); E78.5 Hyperlipidemia, unspecified
CPT/HCPCS: 72131; 96372; 99284; J1100; J1885; J2360